=== PATIENT | female | born 1970 | race Caucasian/White ===

== ENCOUNTER 2016-09-09 05:46 | Day surgery (SDC) | payer BC ==
[~2016-09-09 05:46] MED LIST: Buffered Lidocaine 0.9% SYRIN* 5 ML/SYR SYRINGE INTRADERM ONE
[2016-09-09] MEDS ORDERED: Buffered Lidocaine 0.9% SYRIN* 5 ML/SYR SYRINGE ONE (05:56)
[2016-09-09] MEDS ORDERED: Famotidine IV* 10 MG/ML 2 ML (20 mg) ONE (05:56)
[2016-09-09] MEDS ORDERED: Famotidine IV* 10 MG/ML 2 ML (20 mg) IV ONE (06:00)
[2016-09-09] MEDS ORDERED: fentaNYL* 50 MCG/ML 2 ML VIAL (100 MCG VIAL) ONE (06:33)
[2016-09-09] MEDS ORDERED: Midazolam* 1 MG/ML 5 ML VIAL (5 MG) ONE (06:33)
[2016-09-09] MEDS ORDERED: Dexamethasone IV* 4 MG/ML 1 ML (4 MG) ONE (06:34)
[2016-09-09] MEDS ORDERED: Propofol* 10 MG/ML 20 ML BTL IV PUSH ONE (06:34)
[2016-09-09] MEDS ORDERED: Scopolamine 1.5 mg* PATCH ONE (06:34)
[2016-09-09] MEDS ORDERED: Ondansetron INJ* 2 MG/ML VIAL ONE (06:34)
[2016-09-09] MEDS ORDERED: Lidocaine 2% PF * 5 ML VIAL ONE (06:34)
[2016-09-09] MEDS ORDERED: DiMENhydriNATE IV* 50 MG/ML VIAL ONE (06:34)
[2016-09-09] MEDS ORDERED: Succinylcholine* 20 MG/ML 10 ML VIAL ONE (06:41)
[2016-09-09] MEDS ORDERED: Atracurium* 10 MG/ML 10 ML VIAL ONE (06:41)
[2016-09-09] MEDS ORDERED: Acetaminophen TAB* 325 MG PO PRN (07:52)
[2016-09-09] MEDS ORDERED: DiMENhydriNATE IV* 50 MG/ML VIAL IV PUSH PRN (07:52)
[2016-09-09 08:05] VITALS: BP 128/79
--- NOTE | 2016-09-09 09:28 | RAD ---
INDICATION: Neck pain. Trapezius spasms. Image sequences: Sagittal T1, STIR, T2, axial gradient echo and T2-weighted images of the cervical spine were obtained. The vertebral bodies appear normal in height. Normal bone marrow signal is noted. At C2-C3 and C3-C4, no disc protrusion is noted. No central or foraminal stenosis is noted. At C4-C5, spondylitic ridge flattens the thecal sac. No central or foraminal stenosis is noted. At C5-C6, spondylitic ridge flattens the thecal sac. Left uncovertebral joint hypertrophy narrows the left foramen. At C6-C7, spondylitic ridge with broad-based protrusion flattens the thecal sac and abuts the spinal cord. The broad-based protrusion is slightly asymmetric towards the left. No foraminal stenosis is noted. At C7-T1, the disc is otherwise unremarkable. IMPRESSION: Degenerative disc disease at C4-C5, C5-C6. Minimal spondylitic ridge is noted. At C6-C7, broad-based protrusion slightly asymmetric towards the left, flattening the left ventral thecal sac and abutting the spinal cord.
== END 2016-09-09 08:30 | disposition home or self-care (01) ==
LOC: OR 05:46
PROVIDERS: ATTEND Pediatrics
DX: M54.2 Cervicalgia (principal); M50.30 Other cervical disc degeneration, unspecified cervical region; G43.801 Other migraine, not intractable, with status migrainosus
CPT/HCPCS: 72141; 81025; A9270-GY; J0330; J1100; J1240; J2250; J2405; J2704; J3010

== ENCOUNTER 2017-01-19 06:45 | Day surgery (SDC) | payer BC ==
[~2017-01-19 06:45] MED LIST changes: +Sodium Citrate/Citric Acid* 15 ML UDC PO ONE
[2017-01-19] MEDS ORDERED: Sodium Citrate/Citric Acid* 15 ML UDC ONE (06:53)
[2017-01-19] MEDS ORDERED: Clindamycin 900 MG IVPREMIX(* 900 MG/50 ML SDV IV ONE (06:53)
[2017-01-19] MEDS ORDERED: Bupivacaine 0.25% SDV* 30 ML ONE (07:25)
[2017-01-19] MEDS ORDERED: Midazolam* 1 MG/ML 2 ML VIAL (2 MG) ONE (07:26)
[2017-01-19] MEDS ORDERED: fentaNYL* 50 MCG/ML 2 ML VIAL (100 MCG VIAL) ONE (07:26)
[2017-01-19] MEDS ORDERED: Propofol* 10 MG/ML 20 ML BTL IV PUSH ONE (09:14)
[2017-01-19] MEDS ORDERED: HYDROcodone/ACETAMIN 5-325 MG* 1 TAB ONE (09:39)
[2017-01-19 10:06] VITALS: BP 120/75
--- NOTE | 2017-01-20 03:44 | OP ---
DATE OF OPERATION: 01/19/17 - [facility] DATE OF : 68 SURGEON: Yair Mckinley MD COLOR CHECKER ROVING OR YARN: LIONEL Strickland ANESTHESIOLOGIST: Dr. Gustafson. ANESTHESIA: Local MAC. PRE-OP DIAGNOSES: 1. Right long finger dorsoradial masses. 2. Unstable right long finger distal interphalangeal joint. POST-OP DIAGNOSES: 1. Right long finger dorsoradial masses. 2. Unstable right long finger distal interphalangeal joint. OPERATIVE PROCEDURE: 1. Excision of masses, right middle finger. 2. Right long finger distal interphalangeal joint fusion. INDICATIONS: Cara is 46. She has had a fusion in the PIP joint for years. I took out her hardware recently. Over the last few months, she has developed very painful couple of masses over the dorsoradial aspect of the PIP joint. Additionally, for many years, she has had a floppy and unstable DIP joint with no real active flexion or extension that makes difficult for her to use the fingers. She was wondering if I could try to get the fingers instability by fusing the joint. We talked about risks and benefits and she wanted to proceed. ESTIMATED BLOOD LOSS: 2 mL. COMPLICATIONS: None. FINDINGS: Very prominent osteophytes of the dorsoradial finger. DESCRIPTION OF PROCEDURE: Cara was seen in the preoperative holding area. The correct site, side, and procedure were identified. We came back to the operating room. The arm was prepped and draped in the usual fashion and time- out was performed. I performed a digital block with 0.25% Marcaine. The arm was exsanguinated with the Esmarch and the tourniquet was inflated to 250 mmHg. I reopened her prior dorsoradial incision and developed skin flaps over the dorsum of the finger. The soft tissue overlying the masses was debrided deep. There were several bony protuberances had grown. These were taken off with a rongeur until everything was nice and smooth. Once I had removed all three of these masses, I went ahead and irrigated out that wound and skin was closed with 4-0 Monocryl suture. I then came distal over the dorsal DIP joint and made an H-shaped flap. The terminal extensor tendon was transected. The joint surfaces were prepared with a rongeur. I then opposed the joint surfaces, everything looked good on C-arm, so I went ahead and placed the guidewire for the micro Acutrak screw from antegrade through the joint out at the tip of the distal phalanx. The fusion surfaces were opposed and then the wire was then driven down to the level where the PIP joint should be. I then overdrilled the wire and then placed a 20 mm micro Acutrak screw. This provided excellent compression across the fusion surface. I took some of the local graft that are quite thin when I was preparing the bony ends and I stuffed that in the fusion site. I placed one stitch in the terminal extensor tendon. I then closed the skin with 4-0 Monocryl suture. Tourniquet was released. The finger pinked up immediately. She was then taken to the recovery room in stable condition. [id number]/[facility] #: [id number] RAYO
--- NOTE | 2017-01-20 15:46 | RAD ---
INDICATION: Arthrodesis RIGHT third finger. COMPARISON: November 16, 2015 TECHNIQUE: 28 seconds fluoroscopy. FINDINGS: Spot images document placement of a cannulated screw across the distal interphalangeal joint. Previous fusion of the proximal interphalangeal joint. IMPRESSION: Procedural fluoroscopy. CPT II Codes: 6045F
== END 2017-01-19 10:52 | disposition home or self-care (01) ==
LOC: OREAST 06:45
PROVIDERS: ATTEND Orthopaedic Surgery Hand Surgery
DX: M25.341 Other instability, right hand (principal); R22.31 Localized swelling, mass and lump, right upper limb; M54.9 Dorsalgia, unspecified; M54.2 Cervicalgia
CPT/HCPCS: 76000; 81025; 88304; A9270-GY; C1713; C1776; J2250; J2704; J3010

== ENCOUNTER → 2017-12-21 13:00 | Day surgery (SDC) | payer SELFPAY ==
[~2017-12-21 13:00] MED LIST changes: +Acetaminophen TAB* 325 MG PO PRN; +Bupivacaine 0.25% SDV PF* 10 ML VIAL INJ ONE; +Clindamycin 900 MG/D5W BAG(*) 900 MG/50 ML BAG IVPB ONE; +DiMENhydriNATE IV* 50 MG/ML VIAL IV PUSH PRN; +Famotidine IV* 10 MG/ML 2 ML (20 mg) ONE; +HYDROcodone/ACETAMIN 5-325 MG* 1 TAB ONE; +HYDROcodone/ACETAMIN 5-325 MG* 1 TAB PO PRN; +HYDROmorphone INJ1* 1 MG/ML SYRINGE IV PRN; +Midazolam* 1 MG/ML 2 ML VIAL (2 MG) ONE; +Naloxone* 0.4 MG/ML 1 ML VIAL IV PRN; +PROCHLORPERAZINE INJ 5 MG/ML 2 ML VIAL IV PRN; +Scopolamine 1.5 mg* PATCH ONE; +Scopolamine PATCH Remove* 1 NOTE MISC PATCH OFF ONE; -Sodium Citrate/Citric Acid* 15 ML UDC PO ONE; +diPHENhydraMINE IV* 50 MG/ML 1 ml VIAL (BENADRYL) IV PRN; +fentaNYL* 50 MCG/ML 2 ML VIAL (100 MCG VIAL) ONE
[2017-12-21] MEDS: fentaNYL* 50 MCG/ML 2 ML VIAL (100 MCG VIAL) IV PRN ×2 (14:06→14:12)
[2017-12-21 14:41] VITALS: BP 138/72
--- NOTE | 2017-12-22 05:23 | OP ---
DATE OF OPERATION: 12/21/17 [facility] DATE OF : 68 SURGEON: Yair Mckinley MD SUPERVISOR LAUNDRY: LIONEL Strickland. An fire control assistant was needed for positioning of the arm and retraction. ANESTHESIOLOGIST: Dr. Bowman. ANESTHESIA: General. PRE-OP DIAGNOSIS: Right middle finger proximal phalanx displaced fracture. POST-OP DIAGNOSIS: Right middle finger proximal phalanx displaced fracture. OPERATIVE PROCEDURE: Open reduction and internal fixation, right middle finger displaced proximal phalanx fracture with Synthes variable angle 1.5-mm handset plate and screws. INDICATIONS: Jasmina has had PIP and DIP joint fusions in the past and the finger only moves at the MP joint. She struck the finger a few days ago and fractured through the midshaft of what would be the proximal phalanx. It was rotated. We had talked about her treatment options. She is very concerned that if we just pinned it and it healed, but then it would fracture again, which I think is reasonable considering the long moment arm she has on the finger. She wanted to proceed with open reduction and internal fixation. She understands the risks and benefit. FINDINGS: See above and below. ESTIMATED BLOOD LOSS: 2 mL. COMPLICATIONS: None. DESCRIPTION OF PROCEDURE: Jasmina was seen in the preoperative holding area. The correct side, site, and procedure were identified. We came back to the operating room where the arm was prepped and draped in the usual fashion. A time-out was performed. The arm was exsanguinated with the Esmarch and the tourniquet was inflated to 250 mmHg. I reopened her prior incision over the dorsum of the finger. Dissection was carried down and flaps were raised off of the extensor tendon that remained. The extensor tendon was then split in the midline longitudinally to expose the fracture. The fracture hematoma was curetted and debrided off and suctioned out. The bone was then aligned anatomically and clamped into place with a couple of pointer reduction clamps. We then placed one 1.5-mm countersunk lag screw across the fracture. I then brought in my plates and decided on a latter plate. The last 2 holes were trimmed off. I then secured the plate in place with four 1.5-mm cortical screws proximally and forward screws distally. Everything was looking good, so I checked final fluoroscopic imaging, which confirmed reduction of the fracture and all hardware plate placement and screw lengths. The wound was irrigated out. The extensor tendon was closed with 4-0 Prolene suture. The skin was closed with 4- 0 nylon suture. The wound was dressed and an AlumaFoam splint was applied. The tourniquet was deflated and the finger pinked up immediately. She was taken to the recovery room in stable condition. [id number]/[facility] #: [id number] RAYO
== END | disposition home or self-care (01) ==
LOC: OREAST 13:00
PROVIDERS: ATTEND Orthopaedic Surgery Hand Surgery
DX: S62.612A Displaced fracture of proximal phalanx of right middle finger, initial encounter for closed fracture (principal); Z88.0 Allergy status to penicillin; W22.8XXA Striking against or struck by other objects, initial encounter; Y92.9 Unspecified place or not applicable; G89.29 Other chronic pain
CPT/HCPCS: 76000; A9270-GY; C1713; C1776; J2250; J3010; J3490